=== PATIENT | female | born 1985 | race African-American/Black ===

== ENCOUNTER 2021-03-22 14:49 | Emergency (ER) | payer SELFPAY ==
--- NOTE | 2021-03-22 17:28 | CR ---
Indication: Shortness of breath Comparison: None available. Technique: Single AP view chest Findings: There is no focal consolidation, effusion, or pneumothorax. The cardiomediastinal silhouette is within normal limits. The bony thorax is grossly intact. Impression: No acute cardiopulmonary abnormality. Dictated by Eloy Del Real MD @ 03/22/2021 5:25:52 PM (Electronically Signed)
--- NOTE | 2021-03-22 17:40 | EDM.PDOC ---
<Marc Nickerson - Last Filed: 03/22/21 19:53> ED HPI GENERAL MEDICAL PROBLEM - General Chief Complaint: Respiratory Problem Stated Complaint: SOB Time Seen by Provider: 03/22/21 16:04 - History of Present Illness INITIAL COMMENTS - FREE TEXT/NARRATIVE: CHIEF COMPLAINT(S): Shortness of breath HISTORY OF PRESENT ILLNESS: This is a 35-year-old woman with a past medical history of chronic pancreatitis, type 1 diabetes mellitus, insulin-dependent, hypertension, iron deficiency anemia, dysfunctional uterine bleeding who comes to the emergency department with a chief complaint of shortness of breath. The patient states that for the last 3 weeks she has been experiencing shortness of breath. She states that she just moved here from [place]. She states that she did have a long drive approximately 26 hours. She denies any lower extremity edema. She states that she is mainly noticed increased shortness of breath when she goes upstairs or is walking. She describes some chest tightness but denies any chest pain. She denies any syncope but states that she does feel lightheaded at times. She denies any fever, chills but states that she does have a slight smoker's cough in the morning. She denies any history of DVT or PE. She denies any history of CAD or CHF and denies any family history of sudden onset at young age. REVIEW OF SYSTEMS: Constitutional: Denies fever, chills. Eyes: Denies eye pain Ears, Nose, Mouth, & Throat: Denies earache Cardiovascular: Positive for occasional chest tightness Respiratory: Positive for exertional dyspnea and occasional cough Gastrointestinal: Denies Nausea, vomiting, diarrhea, hematochezia. Genitourinary: Denies hematuria Skin:Denies a rash MSK: Denies joint pain Neurological: Denies blurred vision Psychiatric: Denies depression PAST MEDICAL HISTORY: As per history of present illness and as reviewed below otherwise noncontributory. SURGICAL HISTORY: As per history of present illness and as reviewed below otherwise noncontributory. SOCIAL HISTORY: As per history of present illness and as reviewed below otherwise noncontributory. FAMILY HISTORY: As per history of present illness and as reviewed below otherwise noncontributory. EXAMINATION OF ORGAN SYSTEMS/BODY AREAS: Constitutional: Blood pressure is 107/64, heart rate 86, respiratory rate 22 with an oxygen saturation of 99% on room air. Temperature 36.8 General: Young woman who does not appear to be in acute distress Psychiatric: Appropriate mood and affect. Eyes: No scleral icterus or conjunctival erythema ENMT: Moist mucous membranes. No pharyngeal erythema Cardiovascular: Regular, rate, and rhythm. No gallops, murmurs, or rubs. Bilateral upper extremity pulses symmetric and intact. No peripheral edema. No JVD. Respiratory: Lungs clear to auscultation bilaterally. No wheezes, rales, or rhonchi. Gastrointestinal: Soft, non-tender, non-distended. Normoactive bowel sounds Genitourinary: No suprapubic tenderness Musculoskeletal: Normal range of motion. Skin: No lesions or abrasions. Neurological: Alert, GCS 15 MEDICAL DECISION MAKING AND COURSE IN THE ED WITH INTERPRETATION/REVIEW OF DIAGNOSTIC STUDIES: This is a 35-year-old woman with a past medical history of type 1 diabetes mellitus, hypertension, chronic pancreatitis, and iron deficiency anemia who comes to the emergency department with exertional dyspnea after traveling for the last 3 weeks who is afebrile with normal oxygenation. At this time given her long trip we have to consider a pulmonary embolism. Given her vital signs and given her age she is low risk for this we will obtain a D-dimer to evaluate need for CT angiogram. We will obtain labs including CBC, BMP and troponin. Covid screen will also be obtained. Differential includes ACS, pneumonia, Covid. EKG was obtained which not reveal any acute signs of ischemia. Laboratory: CBC reveals a microcytic anemia with a hemoglobin of 8.4 and hematocrit of 27.9 with thrombocytosis with a platelet count of 410. INR is normal. D-dimer is negative. BMP reveals hypochloremia at 89 and elevated creatinine of 1.6 and hyperglycemia at 783. Magnesium is normal and troponin is negative. Covid is negative. The radiological images were viewed by myself along with reading the report from the radiologist. Chest x-ray does not reveal any acute cardiopulmonary process. After labs I did discuss with the patient that I do believe her exertional dyspnea is likely secondary to the degree of anemia she is experiencing. She states that she normally has 25 days of bleeding a month. She denies any melena, hematochezia or history of GI bleed. She denies any abdominal pain at all whatsoever. She states that her physician in [place] was giving her medroxyprogesterone but she has not had that. In addition she states that she takes Humalog 70/30 20 units at night of insulin. She denies any nausea, vomiting, any other symptoms. She is not on any short acting insulin. At this time I did discuss with her that she should follow-up with gynecology to control her dysfunctional uterine bleeding as I do believe this iron deficiency anemia is likely secondary to her menstrual bleeding and what is likely causing her exertional dyspnea. However given the hyperglycemia I discussed with her I would like to provide her with 1 L of lactated Ringer's bolus and to provide her 10 units of insulin IV. I discussed with her that she would need a close follow-up appointment so that her diabetes could be managed more appropriately and so that they can start her on some short acting insulin. She was amenable to this plan. [facility] pending reevaluation of hyperglycemia DISPOSITION: Patient was signed out to [facility] night physician CONDITION: Fair PROCEDURES: None FINAL IMPRESSION(S)/DIAGNOSES: 1. Acute dyspnea likely secondary to iron deficiency anemia and dysfunctional uterine bleeding 2. Acute hyperglycemia Marc Nickerson M.D. - Related Data Allergies Allergy/AdvReac Type Severity Reaction Status Date / Time No Known Allergies Allergy Verified 03/22/21 15:00 Home Meds: Home Meds Amylase/Lipase/Protease [Belkis WALKER 24,000 Unit] 03/22/21 [History] Labetalol HCl [Labetalol] 03/22/21 [History] amLODIPine [Norvasc] 03/22/21 [History] lisinopriL [Lisinopril] 10 mg PO 03/22/21 [History] Past Medical History HEENT History: Reports: None Cardiovascular History: Reports: Hypertension Respiratory History: Reports: None Gastrointestinal History: Reports: GERD Genitourinary History: Reports: None NAIL TECH History: Reports: None Musculoskeletal History: Reports: None Neurological History: Reports: None Psychiatric History: Reports: None Endocrine/Metabolic History: Reports: Diabetes, Type I Hematologic History: Reports: None Oncologic (Cancer) History: Reports: None Dermatologic History: Reports: None Social & Family History - Family History Family Medical History: No Pertinent Family History - Tobacco Use Tobacco Use Status *Q: Current Every Day Tobacco User Years of Tobacco use: 15 Packs/Tins Daily: 1 - Caffeine Use Caffeine Use: Reports: None - Recreational Drug Use Recreational Drug Use: No Departure - Departure Disposition: Eloped 07 Clinical Impression: Hyperglycemia due to type 1 diabetes mellitus, Anemia, RACHEL (acute kidney injury), Pseudohyponatremia - Discharge Information Instructions: Anemia, Hyperglycemia, [id number] Referrals: PCP,None [Primary Care Provider] - Forms: ED Department Discharge Additional Instructions: The need for follow-up, as well as the timing and circumstances, are variable depending upon the specifics of your emergency department visit. If you don't have a primary care physician on staff, we will provide you with a referral. We always advise you to contact your personal physician following an emergency department visit to inform them of the circumstance of the visit and for follow-up with them and/or the need for any referrals to a consulting specialist. The emergency department will also refer you to a specialist when appropriate. This referral assures that you have the opportunity for follow-up care with a specialist. All of these measure are taken in an effort to provide you with optimal care, which includes your follow-up. Under all circumstances we always encourage you to contact your private physician who remains a resource for coordinating your care. When calling for follow-up care, please make the office aware that this follow-up is from your recent emergency room visit. If for any reason you are refused follow-up, please contact the [facility] Emergency Department at and asked to speak to the emergency department charge nurse. If you do not have a primary care doctor, please follow up with the clinics below within 3-5 days. [facility] - [facility] [address] [place] [id number] [facility] [address] [place] [id number] Sepsis Event Note (ED) - Evaluation Sepsis Screening Result: No Definite Risk <Bryson Basurto - Last Filed: 03/22/21 20:30> ED ROS GENERAL - Review of Systems Review Of Systems: See Below (see dictation) ED EXAM, GENERAL - Physical Exam Exam: See Below (see dictation) Course - Vital Signs Last Recorded V/S: Last Vital Signs Temp 97.7 F 03/22/21 19:24 Pulse 91 03/22/21 19:24 Resp 18 03/22/21 19:24 BP 118/75 03/22/21 19:24 Pulse Ox 98 03/22/21 19:24 - Orders/Labs/Meds Orders: Active Orders 24 hr Category Date Time Status Dextrose 50% in Water Med 03/22/21 17:57 Active 50 ml IVPUSH ASDIRECTED PRN Glucagon,Human Recombinant [GlucaGen] Med 03/22/21 17:57 Active 1 mg IM ASDIRECTED PRN Lactated Ringers [Ringers, Lactated] 1,000 ml Med 03/22/21 18:00 Active IV ASDIRECTED Medication Orders Dextrose/Water (50% Dextrose In Water 50 Ml Syringe) 50 ml IVPUSH ASDIRECTED PRN PRN Reason: Hypoglycemia Glucagon (Glucagon,Human Recombinant 1 Mg Vial) 1 mg IM ASDIRECTED PRN PRN Reason: Hypoglycemia Lactated Ringer's (Ringers, Lactated) 1,000 mls @ 999 mls/hr IV ASDIRECTED ARIEL Last Admin: 03/22/21 18:10 Dose: 999 mls/hr Documented by: MARIMAR Labs: Laboratory Tests 03/22/21 03/22/21 03/22/21 Range/Units 16:04 16:44 16:44 WBC 6.90 (4.0-11.0) K/uL RBC 3.94 L (4.30-5.90) M/uL Hgb 8.4 L (12.0-16.0) g/dL Hct 27.9 L (36.0-46.0) % MCV 70.8 L (80.0-98.0) fL MCH 21.3 L (27.0-32.0) pg MCHC 30.1 L (31.0-37.0) g/dL RDW Std Deviation 47.7 (28.0-62.0) fl RDW Coeff of Vannesa 18 H (11.0-15.0) % Plt Count 410 H (150-400) K/uL MPV 11.90 (7.40-12.00) fL Neut % (Auto) 53.5 (48.0-80.0) % Lymph % (Auto) 34.1 (16.0-40.0) % Rosebud % (Auto) 6.1 (0.0-15.0) % Eos % (Auto) 4.6 (0.0-7.0) % Baso % (Auto) 1.7 H (0.0-1.5) % Neut # (Auto) 3.7 (1.4-5.7) K/uL Lymph # (Auto) 2.4 (0.6-2.4) K/uL Rosebud # (Auto) 0.4 (0.0-0.8) K/uL Eos # (Auto) 0.3 (0.0-0.7) K/uL Baso # (Auto) 0.1 (0.0-0.1) K/uL Nucleated RBC % 0.0 /100WBC Nucleated RBCs # 0 K/uL INR D-Dimer, Quantitative (0.0-0.50) mg/L FEU Sodium 123 L (136-145) mmol/L Potassium 4.8 (3.5-5.1) mmol/L Chloride 89 L (98-107) mmol/L Carbon Dioxide 22.6 (21.0-32.0) mmol/L BUN 16 (7.0-18.0) mg/dL Creatinine 1.6 H (0.6-1.0) mg/dL Est Cr Clr Drug Dosing 48.63 mL/min Estimated GFR (MDRD) 45.0 ml/min Glucose 783 H* (74-106) mg/dL POC Glucose (70-99) mg/dL Calcium 9.4 (8.5-10.1) mg/dL Magnesium 2.4 (1.8-2.4) mg/dL Troponin I < 0.050 (0.000-0.056) ng/mL SARS-CoV-2 RNA (MARIMAR) NEGATIVE (NEGATIVE) 03/22/21 03/22/21 03/22/21 Range/Units 16:44 16:44 18:56 WBC (4.0-11.0) K/uL RBC (4.30-5.90) M/uL Hgb (12.0-16.0) g/dL Hct (36.0-46.0) % MCV (80.0-98.0) fL MCH (27.0-32.0) pg MCHC (31.0-37.0) g/dL RDW Std Deviation (28.0-62.0) fl RDW Coeff of Vannesa (11.0-15.0) % Plt Count (150-400) K/uL MPV (7.40-12.00) fL Neut % (Auto) (48.0-80.0) % Lymph % (Auto) (16.0-40.0) % Rosebud % (Auto) (0.0-15.0) % Eos % (Auto) (0.0-7.0) % Baso % (Auto) (0.0-1.5) % Neut # (Auto) (1.4-5.7) K/uL Lymph # (Auto) (0.6-2.4) K/uL Rosebud # (Auto) (0.0-0.8) K/uL Eos # (Auto) (0.0-0.7) K/uL Baso # (Auto) (0.0-0.1) K/uL Nucleated RBC % /100WBC Nucleated RBCs # K/uL INR 0.96 D-Dimer, Quantitative < 0.19 (0.0-0.50) mg/L FEU Sodium (136-145) mmol/L Potassium (3.5-5.1) mmol/L Chloride (98-107) mmol/L Carbon Dioxide (21.0-32.0) mmol/L BUN (7.0-18.0) mg/dL Creatinine (0.6-1.0) mg/dL Est Cr Clr Drug Dosing mL/min Estimated GFR (MDRD) ml/min Glucose (74-106) mg/dL POC Glucose 420 H* (70-99) mg/dL Calcium (8.5-10.1) mg/dL Magnesium (1.8-2.4) mg/dL Troponin I (0.000-0.056) ng/mL SARS-CoV-2 RNA (MARIMAR) (NEGATIVE) Meds: Medications Generic Name Dose Route Start Last Admin Trade Name Freq PRN Reason Stop Dose Admin Dextrose/Water 50 ml 03/22/21 17:57 50% Dextrose In Water 50 Ml Syringe IVPUSH ASDIRECTED PRN Hypoglycemia Glucagon 1 mg 03/22/21 17:57 Glucagon,Human Recombinant 1 Mg Vial IM ASDIRECTED PRN Hypoglycemia Lactated Ringer's 1,000 mls @ 999 mls/hr 03/22/21 18:00 03/22/21 18:10 Ringers, Lactated IV 999 mls/hr ASDIRECTED ARIEL Administration Discontinued Medications Generic Name Dose Route Start Last Admin Trade Name Ganesh PRN Reason Stop Dose Admin Insulin Human Regular 10 unit 03/22/21 17:57 03/22/21 18:16 Insulin Regular, Human 100 Units/Ml 10 Ml Vial IVPUSH 03/22/21 17:58 10 unit ONETIME ONE Administration Protocol - Re-Assessments/Exams Free Text/Narrative Re-Assessment/Exam: 03/22/21 1900 This patient was signed out to me from Dr. Nickerson at this time. I promptly performed a detailed physical examination, my examination was performed after ED treatments were initiated by the signout provider. Patient has been under the care of the previous provider up until this point. Patient feels fine, awaiting for repeat Accu-Chek after insulin and lactated Ringer. She moved from [place], [place] 4 days ago and has not established care in [place]. She currently denies shortness of breath. 03/22/212019 Patient eloped from the ED prior to repeat accucheck. Departure - Departure Time of Disposition: 20:28 Condition: Good - Discharge Information *PRESCRIPTION DRUG MONITORING PROGRAM REVIEWED*: Not Applicable *COPY OF PRESCRIPTION DRUG MONITORING REPORT IN PATIENT ANJUM: Not Applicable Sepsis Event Note (ED) - Focused Exam Vital Signs: Vital Signs Temp Pulse Resp BP Pulse Ox 03/22/21 19:24 97.7 F 91 18 118/75 98 03/22/21 18:33 92 17 130/68 98 03/22/21 14:54 98.3 F 86 22 H 107/64 99
--- NOTE | 2021-03-22 17:41 | PCM.EKG ---
#1 Interpretation EKG Date: 03/22/21 Time: 16:27 Rhythm: NSR Rate (Beats/Min): 80 [place]: Normal P-Wave: Present QRS: Normal ST-T: Normal QT: Normal Comparison: NA - No Prior EKG EKG Interpretation Comments: Sinus Rhythm
[2021-03-22 17:48] LABS: BLOOD UREA NITROGEN,BUN 16 mg/dL (7.0-18.0); CARBON DIOXIDE,CO2 22.6 mmol/L (21.0-32.0); CHLORIDE,CL 89 mmol/L (98-107); POTASSIUM,K 4.8 mmol/L (3.5-5.1); SODIUM,NA 123 mmol/L (136-145)
[2021-03-22 17:52] LABS: GLUCOSE RANDOM 783 mg/dL (74-106)
[2021-03-22] MEDS ORDERED: 50% Dextrose in Water 50 ML Syringe IVPUSH PRN (17:57)
[2021-03-22] MEDS ORDERED: Glucagon,Human Recombinant 1 MG Vial IM PRN (17:57)
[2021-03-22] MEDS ORDERED: Insulin Regular, Human 100 Units/ML 10 ML Vial IVPUSH ONE (17:57)
[2021-03-22] MEDS ORDERED: Lactated Ringers 1,000 ML IV SCH (18:00)
== END 2021-03-22 20:33 | disposition left against medical advice (07) ==
LOC: MW.ED 14:49
DX: R06.02 Shortness of breath (principal); E10.65 Type 1 diabetes mellitus with hyperglycemia; N17.9 Acute kidney failure, unspecified; D64.9 Anemia, unspecified; I10 Essential (primary) hypertension; E87.1 Hypo-osmolality and hyponatremia; Z79.899 Other long term (current) drug therapy; Z20.822 Contact with and (suspected) exposure to COVID-19
CPT/HCPCS: 36415; 71045; 80048; 82947; 83735; 84484; 85025; 85379; 85610; 87635; 93005; 99285; J7120; J1815-GY; U0002

== ENCOUNTER 2021-04-30 15:53 | Emergency (ER) | payer MEDICAID ==
[2021-04-30] MEDS ORDERED: Sodium Chloride 0.9% 2.5 ML Syringe FLUSH PRN (16:17)
[2021-04-30] MEDS ORDERED: Sodium Chloride 0.9% 10 ML SDV IV PRN (16:17)
[2021-04-30] MEDS ORDERED: Sodium Chloride 0.9% 10 ML Syringe FLUSH PRN (16:17)
[2021-04-30] MEDS ORDERED: Ketorolac 30 MG/ML SDV IVPUSH ONE (16:19)
[2021-04-30] MEDS ORDERED: Ondansetron 4 MG/2 ML SDV IVPUSH ONE (16:19)
[2021-04-30] MEDS ORDERED: Sodium Chloride 0.9% 1,000 ML IV SCH (16:30)
--- NOTE | 2021-04-30 16:58 | PCM.EKG ---
#1 Interpretation EKG Interpretation Comments: EKG done 04/30/2021 at 4:51 PM shows rate 92 axis -13 NM 153 sinus rhythm anterior infarct compared to 03/22/2021 no change impression no acute injury
--- NOTE | 2021-04-30 17:01 | EDM.PDOC ---
ED HPI GENERAL MEDICAL PROBLEM - General Chief Complaint: Flank Pain Time Seen by Provider: 04/30/21 16:00 Source of Information: Reports: Patient History Limitations: Reports: No Limitations - History of Present Illness INITIAL COMMENTS - FREE TEXT/NARRATIVE: HISTORY AND PHYSICAL: History of present illness: The patient is a 35-year-old woman with a past medical history of chronic pancreatitis, type 1 diabetes mellitus, insulin-dependent, hypertension, iron deficiency anemia, dysfunctional uterine bleeding who presents to the emergency department with complaints of right flank pain for 5 to 6 days. The patient states that she has been nausea and vomiting since the pain started. She has been having ongoing constipation as she is taking iron on a daily basis. Patient stated that she had a headache due to going without her 3 hypertension medications for 7 to 8 days but after being back on them for 3 days her headache is starting to decrease. The patient states she started her menses today and has a very irregular cycle often having 25 days of irregular bleeding. Patient denies any fever, chills, change in vision, syncope or near syncope. Denies any chest pain, back pain, shortness of breath or cough. Denies any diarrhea or dysuria. Has not noted any blood in urine or stool. Patient has been eating and drinking appropriately. Review of systems: As per history of present illness and below otherwise all systems reviewed and negative. Past medical history: As per history of present illness and as reviewed below otherwise noncontributory. Surgical history: As per history of present illness and as reviewed below otherwise noncontributory. Social history: See social history for further information Family history: As per history of present illness and as reviewed below otherwise noncontributory. Physical exam: General: Well developed and well nourished. Alert and orientated x 3. Nontoxic in appearance and in no acute distress. Vital signs are stable and have been r eviewed by me. Nursing notes were reviewed. HEENT: Atraumatic, normocephalic, pupils equal and reactive bilaterally, negative for conjunctival pallor or scleral icterus, mucous membranes moist, TMs normal bilaterally, throat clear, neck supple, nontender, trachea midline. No drooling or trismus noted. No meningeal signs. No hot potato voice noted. Lungs: Clear to auscultation bilaterally. No wheezes, rales, or rhonchi. Chest nontender. Normal work of breathing, no accessory muscles used. Heart: S1S2, regular rate and rhythm without overt murmur, gallops, or rubs. No JVD. No peripheral edema Abdomen: Soft, nondistended, nontender. Normoactive bowel sounds. Negative for masses. Positive for bilateral costovertebral tenderness. Skin: Intact, warm, dry. No lesions or rashes noted. Hematologic: No petechiae or purpra. Mucosa appropriate color and normal nail bed color and refill. Extremities: Atraumatic, moves all extremities per self without difficulty or deficits, negative for cords or calf pain. Neurovascular unremarkable. Neuro: Awake, alert, oriented. Cranial nerves II through XII unremarkable. Cerebellum unremarkable. Motor and sensory unremarkable throughout. Exam nonfocal. Psychiatric: Mood and affect are appropriate. Normal thought process. Answering questions appropriately. Notes: *This patient was seen and evaluated during the 2019 SARS-CoV-2 novel coronavirus pandemic period. Community viral transmission is ongoing at time of this encounter and the emergency department is operating under pandemic response procedures. As stated above the patient is a 35-year-old female with a past medical history of chronic pancreatitis, type 1 diabetes mellitus, insulin-dependent, hypertension, iron deficiency anemia, dysfunctional uterine bleeding who presents to the emergency department with complaints of right flank pain for 5 to 6 days. The patient states that her blood sugar at home was 399. She states that she takes Humulin 70/30 and her doctor had prescribed her 30 units in the morning and 30 units in the p.m. however she only takes about 10 to 12 units as she feels like she goes too low. Her blood glucose normally runs between 230 and 250. She states her last A1c was here when she was in the emergency department and is 9.5. The patient does not see a primary care on a routine basis. Recently the patient ran out of her 3 blood pressure medications for 7 to 8 days. She has been on them for the last 3 days. Patient states that she has never had this kind of pain before and does not associate with her diabetes. We will work-up her diabetes and her abdominal pain. I will order blood work, CT abdomen pelvis without, urinalysis, and an hCG. I will treat the patient with IV fluids, Zofran, and Toradol. The patient is agreeable with this plan. The patient sodium is 129, potassium 4.1, chloride 90, creatinine 1.6, glucose of 489, phosphorus 2.5, alkaline phosphatase 155. I have prescribed 3 units of regular insulin IV to be given. The patient's urine hCG is negative. Patient's WBC is 13.5. The patient's urinalysis is positive for an infection. I have prescribed Bactrim DS po BID for 14 days. We will stat the antibiotic in the ED. The patient is to have a total of two liters of fluids and another Regular insulin 5 units. I have explained to the patient of the need for the second liter of fluids and insulin. She is agreeable with the plan. I talked to the patient about her need for a primary care provider with her type 1 diabetes. I explained to the patient that her A1c in March was 11 which makes her blood sugar running around 310. The patient states that she is uncomfortable increasing her Humulin 70/30 but will follow up with the primary care. The patient's follow-up glucose is 333. The patient is completing her second liter of fluids and states she is feeling pretty good. I will be discharging the patient home and she is under understands the need to follow-up with a primary care. I have talked with the patient about today's findings, in addition to providing specific details for plan of care. Reassessment at the time of disposition demonstrates that the patient is in no acute distress. The patient is stable for discharge, counseling was provided and we discussed in great detail signs and symptoms that would prompt them to return to the Emergency Department. Medication, follow up and supportive care measures were reviewed and discussed. Voices understanding and is agreeable to plan of care. Denies any further questions or concerns at this time. Diagnostics: CBC, C MP, lipase, magnesium, lactic acid, UA, hCG, CT abdomen pelvis without Therapeutics: Fluids, Zofran, Toradol Prescription:Bactrim DS one by mouth BID for 14 days Impression: pyelonephritis, elevated glucose Plan: 1. You were evaluated today on an emergent basis. Your complaints of flank pain was evaluated with blood work, urinalysis, and a abdomen CT. You were found to have pyelonephritis or kidney infection. You were treated with Bactrim DS. I have called Bactrim DS 1 by mouth twice daily for 14 days to your pharmacy. It is imperative that you take all of your medications. Your glucose was elevated and you were treated with insulin. You also received 2 L of fluid. Your A1c in March was 11 which puts your average glucose around 310. It is imperative that you follow-up with a primary care provider and get your diabetes under control as we discussed. I have put your name on a callback list for your primary care providers. You should receive a phone call however if you do not you need to make that appointment. 2. You can alternate Tylenol and ibuprofen as needed for pain and fever management. 3. We encourage you to follow up with your primary care provider and/or recommended specialist in the next few days for re-evaluation and further care/management. 4. If your symptoms should worsen, new symptoms develop or any of the signs and symptoms we discussed should arise please return to the emergency room or call 911 (if needed). Definitive disposition and diagnosis as appropriate pending reevaluation and review of above. Right Flank Pain Score (Numeric/FACES): 10 - Related Data Allergies Allergy/AdvReac Type Severity Reaction Status Date / Time No Known Allergies Allergy Verified 04/30/21 16:03 Home Meds: Home Meds Amylase/Lipase/Protease [Creon DR 24,000 Unit] 03/22/21 [History] Labetalol HCl [Labetalol] 03/22/21 [History] amLODIPine [Norvasc] 03/22/21 [History] lisinopriL [Lisinopril] 10 mg PO 03/22/21 [History] Sulfamethoxazole/Trimethoprim [Bactrim Ds Tablet] 1 each PO BID 14 Days #27 tablet 04/30/21 [Rx] Past Medical History HEENT History: Reports: None Cardiovascular History: Reports: Hypertension Respiratory History: Reports: None Gastrointestinal History: Reports: GERD Genitourinary History: Reports: None INFECTIOUS DISEASES PHYSICIAN History: Reports: None Musculoskeletal History: Reports: None Neurological History: Reports: None Psychiatric History: Reports: None Endocrine/Metabolic History: Reports: Diabetes, Type I Hematologic History: Reports: None Oncologic (Cancer) History: Reports: None Dermatologic History: Reports: None - Infectious Disease History Infectious Disease History: Reports: C-Difficile, Shingles Social & Family History - Family History Family Medical History: No Pertinent Family History - Tobacco Use Tobacco Use Status *Q: Current Every Day Tobacco User Years of Tobacco use: 10 Packs/Tins Daily: 0.5 - Caffeine Use Caffeine Use: Reports: None - Recreational Drug Use Recreational Drug Use: No ED ROS GENERAL - Review of Systems Review Of Systems: Comprehensive ROS is negative, except as noted in HPI. ED EXAM, GI/ABD - Physical Exam Exam: See Below (See dictation) Course - Vital Signs Last Recorded V/S: Last Vital Signs Temp 97.8 F 04/30/21 16:04 Pulse 84 04/30/21 21:07 Resp 17 04/30/21 21:07 BP 122/87 04/30/21 21:07 Pulse Ox 98 04/30/21 21:07 - Orders/Labs/Meds Labs: Laboratory Tests 04/30/21 04/30/21 04/30/21 Range/Units 16:48 16:48 16:48 WBC 13.50 H (4.0-11.0) K/uL RBC 5.02 (4.30-5.90) M/uL Hgb 13.6 (12.0-16.0) g/dL Hct 40.5 (36.0-46.0) % MCV 80.7 (80.0-98.0) fL MCH 27.1 (27.0-32.0) pg MCHC 33.6 (31.0-37.0) g/dL RDW Std Deviation 69.6 H (28.0-62.0) fl RDW Coeff of Vannesa 25 H (11.0-15.0) % Plt Count 139 L (150-400) K/uL MPV (7.40-12.00) fL Neut % (Auto) 69.6 (48.0-80.0) % Lymph % (Auto) 13.6 L (16.0-40.0) % Ida % (Auto) 15.2 H (0.0-15.0) % Eos % (Auto) 1.3 (0.0-7.0) % Baso % (Auto) 0.3 (0.0-1.5) % Neut # (Auto) 9.4 H (1.4-5.7) K/uL Lymph # (Auto) 1.8 (0.6-2.4) K/uL Ida # (Auto) 2.1 H (0.0-0.8) K/uL Eos # (Auto) 0.2 (0.0-0.7) K/uL Baso # (Auto) 0.0 (0.0-0.1) K/uL Nucleated RBC % 0.0 /100WBC Nucleated RBCs # 0 K/uL Sodium 129 L (136-145) mmol/L Potassium 4.1 (3.5-5.1) mmol/L Chloride 90 L (98-107) mmol/L Carbon Dioxide 30.3 (21.0-32.0) mmol/L BUN 12 (7.0-18.0) mg/dL Creatinine 1.6 H (0.6-1.0) mg/dL Est Cr Clr Drug Dosing 48.63 mL/min Estimated GFR (MDRD) 37.1 ml/min Glucose 489 H (74-106) mg/dL POC Glucose (70-99) mg/dL Lactic Acid (0.4-2.0) mmol/L Calcium 9.2 (8.5-10.1) mg/dL Phosphorus 2.5 L (2.6-4.7) mg/dL Magnesium 1.9 (1.8-2.4) mg/dL Total Bilirubin 0.4 (0.2-1.0) mg/dL AST 35 (15-37) IU/L ALT 24 (14-63) IU/L Alkaline Phosphatase 155 H (46-116) U/L Total Protein 8.2 (6.4-8.2) g/dL Albumin 2.7 L (3.4-5.0) g/dL Globulin 5.5 H (2.6-4.0) g/dL Albumin/Globulin Ratio 0.5 L (0.9-1.6) Urine Color YELLOW Urine Appearance CLOUDY Urine pH 6.5 (5.0-8.0) Ur Specific [place] 1.015 (1.001-1.035) Urine Protein 100 H (NEGATIVE) mg/dL Urine Glucose (UA) >=1000 (NEGATIVE) mg/dL Urine Ketones 40 H (NEGATIVE) mg/dL Urine Occult Blood LARGE H (NEGATIVE) Urine Nitrite POSITIVE H (NEGATIVE) Urine Bilirubin NEGATIVE (NEGATIVE) Urine Urobilinogen 1.0 (<2.0) EU/dL Ur Leukocyte Esterase NEGATIVE (NEGATIVE) Urine RBC 75-100 H (0-2/HPF) Urine WBC 6-8 (0-5/HPF) Ur Epithelial Cells RARE (NONE-FEW) Urine Bacteria 2+ H (NEGATIVE) Urine Mucus LIGHT (NONE-MOD) Urine HCG, Qual (NEGATIVE) Ketones (NEG) 04/30/21 04/30/21 04/30/21 Range/Units 16:48 16:48 16:48 WBC (4.0-11.0) K/uL RBC (4.30-5.90) M/uL Hgb (12.0-16.0) g/dL Hct (36.0-46.0) % MCV (80.0-98.0) fL MCH (27.0-32.0) pg MCHC (31.0-37.0) g/dL RDW Std Deviation (28.0-62.0) fl RDW Coeff of Vannesa (11.0-15.0) % Plt Count (150-400) K/uL MPV (7.40-12.00) fL Neut % (Auto) (48.0-80.0) % Lymph % (Auto) (16.0-40.0) % Ida % (Auto) (0.0-15.0) % Eos % (Auto) (0.0-7.0) % Baso % (Auto) (0.0-1.5) % Neut # (Auto) (1.4-5.7) K/uL Lymph # (Auto) (0.6-2.4) K/uL Ida # (Auto) (0.0-0.8) K/uL Eos # (Auto) (0.0-0.7) K/uL Baso # (Auto) (0.0-0.1) K/uL Nucleated RBC % /100WBC Nucleated RBCs # K/uL Sodium (136-145) mmol/L Potassium (3.5-5.1) mmol/L Chloride (98-107) mmol/L Carbon Dioxide (21.0-32.0) mmol/L BUN (7.0-18.0) mg/dL Creatinine (0.6-1.0) mg/dL Est Cr Clr Drug Dosing mL/min Estimated GFR (MDRD) ml/min Glucose (74-106) mg/dL POC Glucose (70-99) mg/dL Lactic Acid 1.5 (0.4-2.0) mmol/L Calcium (8.5-10.1) mg/dL Phosphorus (2.6-4.7) mg/dL Magnesium (1.8-2.4) mg/dL Total Bilirubin (0.2-1.0) mg/dL AST (15-37) IU/L ALT (14-63) IU/L Alkaline Phosphatase (46-116) U/L Total Protein (6.4-8.2) g/dL Albumin (3.4-5.0) g/dL Globulin (2.6-4.0) g/dL Albumin/Globulin Ratio (0.9-1.6) Urine Color Urine Appearance Urine pH (5.0-8.0) Ur Specific [place] (1.001-1.035) Urine Protein (NEGATIVE) mg/dL Urine Glucose (UA) (NEGATIVE) mg/dL Urine Ketones (NEGATIVE) mg/dL Urine Occult Blood (NEGATIVE) Urine Nitrite (NEGATIVE) Urine Bilirubin (NEGATIVE) Urine Urobilinogen (<2.0) EU/dL Ur Leukocyte Esterase (NEGATIVE) Urine RBC (0-2/HPF) Urine WBC (0-5/HPF) Ur Epithelial Cells (NONE-FEW) Urine Bacteria (NEGATIVE) Urine Mucus (NONE-MOD) Urine HCG, Qual NEGATIVE (NEGATIVE) Ketones NEGATIVE (NEG) 04/30/21 04/30/21 Range/Units 18:58 20:22 WBC (4.0-11.0) K/uL RBC (4.30-5.90) M/uL Hgb (12.0-16.0) g/dL Hct (36.0-46.0) % MCV (80.0-98.0) fL MCH (27.0-32.0) pg MCHC (31.0-37.0) g/dL RDW Std Deviation (28.0-62.0) fl RDW Coeff of Vannesa (11.0-15.0) % Plt Count (150-400) K/uL MPV (7.40-12.00) fL Neut % (Auto) (48.0-80.0) % Lymph % (Auto) (16.0-40.0) % Ida % (Auto) (0.0-15.0) % Eos % (Auto) (0.0-7.0) % Baso % (Auto) (0.0-1.5) % Neut # (Auto) (1.4-5.7) K/uL Lymph # (Auto) (0.6-2.4) K/uL Ida # (Auto) (0.0-0.8) K/uL Eos # (Auto) (0.0-0.7) K/uL Baso # (Auto) (0.0-0.1) K/uL Nucleated RBC % /100WBC Nucleated RBCs # K/uL Sodium (136-145) mmol/L Potassium (3.5-5.1) mmol/L Chloride (98-107) mmol/L Carbon Dioxide (21.0-32.0) mmol/L BUN (7.0-18.0) mg/dL Creatinine (0.6-1.0) mg/dL Est Cr Clr Drug Dosing mL/min Estimated GFR (MDRD) ml/min Glucose (74-106) mg/dL POC Glucose 442 H* 333 H (70-99) mg/dL Lactic Acid (0.4-2.0) mmol/L Calcium (8.5-10.1) mg/dL Phosphorus (2.6-4.7) mg/dL Magnesium (1.8-2.4) mg/dL Total Bilirubin (0.2-1.0) mg/dL AST (15-37) IU/L ALT (14-63) IU/L Alkaline Phosphatase (46-116) U/L Total Protein (6.4-8.2) g/dL Albumin (3.4-5.0) g/dL Globulin (2.6-4.0) g/dL Albumin/Globulin Ratio (0.9-1.6) Urine Color Urine Appearance Urine pH (5.0-8.0) Ur Specific [place] (1.001-1.035) Urine Protein (NEGATIVE) mg/dL Urine Glucose (UA) (NEGATIVE) mg/dL Urine Ketones (NEGATIVE) mg/dL Urine Occult Blood (NEGATIVE) Urine Nitrite (NEGATIVE) Urine Bilirubin (NEGATIVE) Urine Urobilinogen (<2.0) EU/dL Ur Leukocyte Esterase (NEGATIVE) Urine RBC (0-2/HPF) Urine WBC (0-5/HPF) Ur Epithelial Cells (NONE-FEW) Urine Bacteria (NEGATIVE) Urine Mucus (NONE-MOD) Urine HCG, Qual (NEGATIVE) Ketones (NEG) Meds: Medications Discontinued Medications Generic Name Dose Route Start Last Admin Trade Name Freq PRN Reason Stop Dose Admin Dextrose/Water 50 ml 04/30/21 17:46 50% Dextrose In Water 50 Ml Syringe IVPUSH ASDIRECTED PRN Hypoglycemia Dextrose/Water 50 ml 04/30/21 19:06 50% Dextrose In Water 50 Ml Syringe IVPUSH ASDIRECTED PRN Hypoglycemia Glucagon 1 mg 04/30/21 17:46 Glucagon,Human Recombinant 1 Mg Vial IM ASDIRECTED PRN Hypoglycemia Glucagon 1 mg 04/30/21 19:06 Glucagon,Human Recombinant 1 Mg Vial IM ASDIRECTED PRN Hypoglycemia Sodium Chloride 1,000 mls @ 999 mls/hr 04/30/21 16:30 04/30/21 16:58 Normal Saline IV 999 mls/hr ASDIRECTED ARIEL Administration Sodium Chloride 1,000 mls @ 999 mls/hr 04/30/21 19:09 04/30/21 19:11 Normal Saline IV 04/30/21 20:09 999 mls/hr .BOLUS ONE Administration Insulin Human Regular 5 unit 04/30/21 17:46 04/30/21 18:19 Insulin Regular, Human 100 Units/Ml 10 Ml Vial IVPUSH 04/30/21 17:47 5 units ONETIME ONE Administration Protocol Insulin Human Regular 5 unit 04/30/21 19:06 04/30/21 19:28 Insulin Regular, Human 100 Units/Ml 10 Ml Vial SUBCUT 04/30/21 19:07 5 units ONETIME ONE Administration Protocol Ketorolac Tromethamine 30 mg 04/30/21 16:19 04/30/21 17:00 Ketorolac 30 Mg/Ml Sdv IVPUSH 04/30/21 16:20 30 mg ONETIME ONE Administration Nitrofurantoin Macrocrystals 100 mg 04/30/21 18:57 Nitrofurantoin Monohydrate/Macrocrystalline 100 Mg Cap PO 04/30/21 18:58 ONETIME STA Ondansetron HCl 4 mg 04/30/21 16:19 04/30/21 17:00 Ondansetron 4 Mg/2 Ml Sdv IVPUSH 04/30/21 16:20 4 mg ONETIME ONE Administration Sodium Chloride 10 ml 04/30/21 16:17 04/30/21 17:01 Sodium Chloride 0.9% 10 Ml Syringe FLUSH 10 ml ASDIRECTED PRN Administration Keep Vein Open Sodium Chloride 2.5 ml 04/30/21 16:17 04/30/21 17:01 Sodium Chloride 0.9% 2.5 Ml Syringe FLUSH 2.5 ml ASDIRECTED PRN Administration Keep Vein Open Sodium Chloride 10 ml 04/30/21 16:17 Sodium Chloride 0.9% 10 Ml Sdv IV ASDIRECTED PRN IV Use Trimethoprim/Sulfamethoxazole 1 tab 04/30/21 19:05 04/30/21 19:29 Sulfamethoxazole/Trimethoprim 800-160 Mg Tab PO 04/30/21 19:06 1 tab ONETIME STA Administration Departure - Departure Time of Disposition: 20:25 Disposition: Home, Self-Care 01 Condition: Good Clinical Impression: Pyelonephritis, Elevated glucose - Discharge Information *PRESCRIPTION DRUG MONITORING PROGRAM REVIEWED*: Not Applicable *COPY OF PRESCRIPTION DRUG MONITORING REPORT IN PATIENT ANJUM: Not Applicable Prescriptions: Sulfamethoxazole/Trimethoprim [Bactrim Ds Tablet] 1 each PO BID 14 Days #27 tablet Instructions: Pyelonephritis, Adult, [id number] Referrals: PCP,None [Primary Care Provider] - Forms: ED Department Discharge Additional Instructions: The following information is given to patients seen in the emergency department who are being discharged to home. This information is to outline your options for follow-up care. We provide all patients seen in our emergency department with a follow-up referral. The need for follow-up, as well as the timing and circumstances, are variable depending upon the specifics of your emergency department visit. If you don't have a primary care physician on staff, we will provide you with a referral. We always advise you to contact your personal physician following an emergency department visit to inform them of the circumstance of the visit and for follow-up with them and/or the need for any referrals to a consulting specialist. The emergency department will also refer you to a specialist when appropriate. This referral assures that you have the opportunity for follow-up care with a specialist. All of these measure are taken in an effort to provide you with optimal care, which includes your follow-up. Under all circumstances we always encourage you to contact your private physician who remains a resource for coordinating your care. When calling for follow-up care, please make the office aware that this follow-up is from your recent emergency room visit. If for any reason you are refused follow-up, please contact the [facility] Emergency Department at and asked to speak to the emergency department charge nurse. Delmi Perry [facility] - [facility] [address] [place] [id number] [facility] [address] [place] [id number] Plan: 1. You were evaluated today on an emergent basis. Your complaints of flank pain was evaluated with blood work, urinalysis, and a abdomen CT. You were found to have pyelonephritis or kidney infection. You were treated with Bactrim DS. I have called Bactrim DS 1 by mouth twice daily for 14 days to your pharmacy. It is imperative that you take all of your medications. Your glucose was elevated and you were treated with insulin. You also received 2 L of fluid. Your A1c in March was 11 which puts your average glucose around 310. It is imperative that you follow-up with a primary care provider and get your diabetes under control as we discussed. I have put your name on a callback list for your primary care providers. You should receive a phone call however if you do not you need to make that appointment. 2. You can alternate Tylenol and ibuprofen as needed for pain and fever management. 3. We encourage you to follow up with your primary care provider and/or recommended specialist in the next few days for re-evaluation and further care/management. 4. If your symptoms should worsen, new symptoms develop or any of the signs and symptoms we discussed should arise please return to the emergency room or call 911 (if needed). Sepsis Event Note (ED) - Evaluation Sepsis Screening Result: No Definite Risk
[2021-04-30 17:37] LABS: CARBON DIOXIDE,CO2 30.3 mmol/L (21.0-32.0); POTASSIUM,K 4.1 mmol/L (3.5-5.1)
[2021-04-30] MEDS ORDERED: 50% Dextrose in Water 50 ML Syringe IVPUSH PRN ×2 (17:46→19:06)
[2021-04-30] MEDS ORDERED: Insulin Regular, Human 100 Units/ML 10 ML Vial IVPUSH ONE (17:46)
[2021-04-30] MEDS ORDERED: Glucagon,Human Recombinant 1 MG Vial IM PRN ×2 (17:46→19:06)
--- NOTE | 2021-04-30 18:49 | CT ---
INDICATION: Flank pain COMPARISON: None available TECHNIQUE: CT examination of the abdomen and pelvis was performed without contrast enhancement using 2 and 3us mm thick axial sections from the lung bases through the pubic symphysis. Oral contrast was not administered. Please note that all CT scans at this facility use dose modulation, iterative reconstruction, and/or weight-based dosing when appropriate to reduce radiation dose to as low as reasonably achievable. FINDINGS: There is a moderate amount of fecal material distributed throughout the colon consistent with constipation. In the abdomen, the liver is low in density, representing fatty infiltration. There is a lobulated low-density mass in the area of the koby hepatis involving the inferior portion of segment 4B, the medial segments of the left lobe, measuring 3.4 x 2.5 by 3.1 centimeters. This may be a hemangioma or other low-density mass. Suggest correlation with dedicated CT of the liver with and without contrast, to include delayed images. The spleen, pancreas and adrenals are normal in appearance. The unenhanced kidneys are normal in appearance. The gallbladder is normal in appearance. The abdominal aorta is normal in caliber with no sign of dilatation. There is no sign of retroperitoneal mass or adenopathy. The stomach, loops of small bowel, and colon in the abdomen are normal in appearance. In the pelvis, the retrocecal appendix is normal in appearance with no sign of inflammatory process. The loops of small bowel and colon in the pelvis are normal in appearance. The uterus and adnexal regions are normal in appearance. The urinary bladder is normal in appearance. There is no sign of pelvic or inguinal mass or adenopathy. There is no sign of free air or free fluid in the abdomen or pelvis. The lung bases are clear. The osseous structures are normal in appearance for the patient`s age. IMPRESSION: There is a moderate amount of fecal material distributed throughout the colon consistent with constipation. CT of the abdomen shows fatty infiltration of the liver. Lobular low-density mass in central portion of the inferior aspect of the medial segment of the left lobe, segment 4B measuring up to 3.4 centimeters in diameter, a possible hemangioma. Recommend correlation with dedicated CT of the liver with and without contrast, to include delayed images. Nothing else seen in the abdomen to correlate with the history of flank pain. No sign of hydronephrosis, hydroureter, or renal or ureteral calculi. Normal CT of the pelvis without contrast. Please note that all CT scans at this facility use dose modulation, iterative reconstruction, and/or weight-based dosing when appropriate to reduce radiation dose to as low as reasonably achievable. Dictated by Keven Chaidez MD @ 04/30/2021 6:47:50 PM (Electronically Signed)
[2021-04-30] MEDS ORDERED: Nitrofurantoin Monohydrate/Macrocrystalline 100 MG Cap PO STA (18:57)
[2021-04-30] MEDS ORDERED: Sulfamethoxazole/Trimethoprim 800-160 MG Tab PO STA (19:05)
[2021-04-30] MEDS ORDERED: Insulin Regular, Human 100 Units/ML 10 ML Vial SUBCUT ONE (19:06)
[2021-04-30] MEDS ORDERED: Sodium Chloride 0.9% 1,000 ML IV ONE (19:09)
== END 2021-04-30 21:07 | disposition home or self-care (01) ==
LOC: MW.ED 15:53
DX: N12 Tubulo-interstitial nephritis, not specified as acute or chronic (principal); E10.65 Type 1 diabetes mellitus with hyperglycemia; I10 Essential (primary) hypertension; Z79.899 Other long term (current) drug therapy; Z72.0 Tobacco use
CPT/HCPCS: 36415; 74176; 80053; 81001; 81025; 82009; 82947; 83605; 83735; 84100; 85025; 93005; 96374; 96375; 99284; A9270; J1885; J2405; J7030; J1815-GY

== ENCOUNTER 2022-01-16 15:38 | Inpatient (IN) | payer MEDICAID ==
[2022-01-16] MEDS ORDERED: Sodium Chloride 0.9% 1,000 ML IV ONE (16:12)
[2022-01-16] MEDS ORDERED: Insulin Regular, Human 100 Units/ML 10 ML Vial IVPUSH ONE ×2 (16:15→17:41)
[2022-01-16 16:56] LABS: BLOOD UREA NITROGEN,BUN 24 mg/dL (7.0-18.0); CARBON DIOXIDE,CO2 17.8 mmol/L (21.0-32.0); CHLORIDE,CL 89 mmol/L (98-107); POTASSIUM,K 4.1 mmol/L (3.5-5.1); SODIUM,NA 125 mmol/L (136-145)
[2022-01-16 16:57] LABS: ESTIMATED GFR 47 mL/min (>60)
[2022-01-16 16:58] LABS: GLUCOSE RANDOM 706 mg/dL (74-106)
[2022-01-16] MEDS ORDERED: Lactated Ringers 1,000 ML IV ONE (17:43)
[2022-01-16] MEDS ORDERED: Albuterol/Ipratropium 3.0-0.5 MG/3 ML Neb Soln NEB PRN (19:05)
[2022-01-16] MEDS ORDERED: Ondansetron 4 MG/2 ML SDV IVPUSH PRN (19:05)
[2022-01-16] MEDS ORDERED: Insulin Regular in 0.9 % NACL 100 ML IV SCH (19:45)
[2022-01-16 19:58] LABS: CARBON DIOXIDE,CO2 20.3 mmol/L (21.0-32.0); POTASSIUM,K 3.4 mmol/L (3.5-5.1)
[2022-01-16] MEDS: Lactated Ringers 1,000 ML IV SCH (20:14)
[2022-01-16] MEDS: Heparin Sodium 5,000 Units/ML Vial SUBCUT SCH (20:17)
[2022-01-16] MEDS: Pantoprazole 40 MG in Sodium Chloride 0.9% 10 ML IVPUSH SCH (20:19)
[2022-01-16] MEDS: Acetaminophen 325 MG Tab PO PRN (21:25)
[2022-01-16] MEDS ORDERED: Phosphorus #1 250 MG Tab PO ONE (22:04)
[2022-01-16] MEDS ORDERED: Potassium Chloride 20 MEQ Tab.ER PO ONE (22:05)
[2022-01-17 00:53] LABS: CARBON DIOXIDE,CO2 23.1 mmol/L (21.0-32.0); POTASSIUM,K 3.6 mmol/L (3.5-5.1)
[2022-01-17] MEDS ORDERED: 50% Dextrose in Water 50 ML Syringe IVPUSH PRN ×2 (01:16→19:13)
[2022-01-17] MEDS ORDERED: Glucagon,Human Recombinant 1 MG Vial IM PRN ×2 (01:16→19:13)
[2022-01-17] MEDS ORDERED: Insulin Glargine,Hum.Rec.Anlog 100 UNIT/ML 3 ML Pen SUBCUT ONE ×2 (01:17→21:00)
[2022-01-17] MEDS ORDERED: LORazepam 2 MG/ML SDV IVPUSH PRN (01:22)
[2022-01-17] MEDS: Lactated Ringers 1,000 ML IV SCH (01:33)
[2022-01-17] MEDS: Acetaminophen 325 MG Tab PO PRN (01:36)
[2022-01-17 05:09] LABS: POTASSIUM,K 3.8 mmol/L (3.5-5.1)
[2022-01-17] MEDS: Heparin Sodium 5,000 Units/ML Vial SUBCUT SCH ×3 (05:14→21:12)
[2022-01-17] MEDS ORDERED: Insulin Aspart 100 Units/ML 3 ML Pen SUBCUT SCH ×2 (07:30→11:30)
[2022-01-17] MEDS: Pantoprazole 40 MG in Sodium Chloride 0.9% 10 ML IVPUSH SCH (08:09)
[2022-01-17] MEDS ORDERED: Magnesium Sulfate/Water 2 GM in Premix Bag 1 BAG IV ONE (08:25)
[2022-01-17] MEDS: Lisinopril 10 MG Tab PO SCH (08:57)
[2022-01-17] MEDS: amLODIPine 5 MG Tab PO SCH (08:57)
[2022-01-17 09:00] LABS: CARBON DIOXIDE,CO2 22.4 mmol/L (21.0-32.0); POTASSIUM,K 4.1 mmol/L (3.5-5.1)
[2022-01-17] MEDS ORDERED: Insulin Aspart 100 Units/ML 3 ML Pen SUBCUT ONE ×2 (11:11→12:14)
[2022-01-17] MEDS ORDERED: Lactated Ringers 1,000 ML IV ONE ×2 (11:14→17:05)
[2022-01-17] MEDS: Insulin Glargine,Hum.Rec.Anlog 100 UNIT/ML 3 ML Pen SUBCUT SCH (11:34)
[2022-01-17] MEDS: Insulin Aspart 100 Units/ML 3 ML Pen SUBCUT SCH ×2 (17:50→21:16)
[2022-01-17 20:53] LABS: HEMOGLOBIN A1C >14.0 %
[2022-01-18] MEDS ORDERED: Lactated Ringers 1,000 ML IV SCH (00:30)
[2022-01-18] MEDS: Heparin Sodium 5,000 Units/ML Vial SUBCUT SCH ×2 (03:19→12:19)
[2022-01-18] MEDS: Insulin Aspart 100 Units/ML 3 ML Pen SUBCUT SCH ×4 (06:32→12:17)
[2022-01-18 06:41] LABS: CARBON DIOXIDE,CO2 26.5 mmol/L (21.0-32.0); POTASSIUM,K 3.8 mmol/L (3.5-5.1)
[2022-01-18] MEDS: amLODIPine 5 MG Tab PO SCH (10:09)
[2022-01-18] MEDS: Lisinopril 10 MG Tab PO SCH (10:10)
[2022-01-18] MEDS: Pantoprazole 40 MG in Sodium Chloride 0.9% 10 ML IVPUSH SCH (10:10)
[2022-01-18] MEDS: Insulin Glargine,Hum.Rec.Anlog 100 UNIT/ML 3 ML Pen SUBCUT SCH (10:16)
[2022-01-18] MEDS ORDERED: Insulin Glargine,Hum.Rec.Anlog 100 UNIT/ML 3 ML Pen SUBCUT ONE (21:00)
== END 2022-01-18 14:45 | disposition home or self-care (01) | DRG 638 ==
LOC: MW.ED 15:38 → MW.ICU 17:48 → MW.MS 01-17 15:20
PROVIDERS: ADMIT Student in an Organized Health Care Education/Training Program; ATTEND Student in an Organized Health Care Education/Training Program
DX: E10.10 Type 1 diabetes mellitus with ketoacidosis without coma (principal); N17.9 Acute kidney failure, unspecified; R79.89 Other specified abnormal findings of blood chemistry; I10 Essential (primary) hypertension; K21.9 Gastro-esophageal reflux disease without esophagitis; Z20.822 Contact with and (suspected) exposure to COVID-19; Z79.899 Other long term (current) drug therapy
CPT/HCPCS: 36415; 80048; 80053; 80305-QW; 81001; 82009; 82803; 82947; 83036; 83735; 83930; 84100; 84703; 85025; 96360; 96361; 99285-25; A9270-GY; C9113; J1644; J1815; J1815-GY; J3475; J3490; J7030; J7120; U0002

== ENCOUNTER 2022-07-06 10:02 | Inpatient (IN) | payer MEDICAID ==
[2022-07-06] MEDS ORDERED: Sodium Chloride 0.9% 2.5 ML Syringe FLUSH PRN (10:06)
[2022-07-06] MEDS ORDERED: Sodium Chloride 0.9% 10 ML Syringe FLUSH PRN (10:06)
[2022-07-06] MEDS ORDERED: Sodium Chloride 0.9% 1,000 ML IV ONE ×2 (10:07→10:08)
[2022-07-06 11:00] LABS: CORONAVIRUS COVID-19 NAA NEGATIVE (NEGATIVE); INFLUENZA A NAA NEGATIVE (NEGATIVE); INFLUENZA B NAA NEGATIVE (NEGATIVE)
[2022-07-06 11:20] LABS: CARBON DIOXIDE,CO2 17.5 mmol/L (21.0-32.0); POTASSIUM,K 5.6 mmol/L (3.5-5.1)
[2022-07-06] MEDS ORDERED: Sodium Chloride 0.9% 1,000 ML IV STA (11:48)
[2022-07-06 15:01] LABS: CARBON DIOXIDE,CO2 20.5 mmol/L (21.0-32.0); POTASSIUM,K 3.6 mmol/L (3.5-5.1)
[2022-07-06] MEDS ORDERED: Insulin Detemir 100 Units/ML 3 ML Pen SUBCUT ONE (15:52)
[2022-07-06] MEDS ORDERED: Glucagon,Human Recombinant 1 MG Vial IM PRN ×2 (15:52→18:35)
[2022-07-06] MEDS ORDERED: 50% Dextrose in Water 50 ML Syringe IVPUSH PRN ×2 (15:52→18:35)
[2022-07-06] MEDS ORDERED: Insulin Detemir 100 Units/ML 3 ML Pen SUBCUT STA (16:11)
[2022-07-06] MEDS ORDERED: Dextrose 5%-Lactated Ringers 1,000 ML IV SCH (16:15)
[2022-07-06] MEDS ORDERED: Lactated Ringers 1,000 ML IV SCH (16:15)
[2022-07-06 18:11] LABS: CARBON DIOXIDE,CO2 21.1 mmol/L (21.0-32.0); POTASSIUM,K 3.5 mmol/L (3.5-5.1)
[2022-07-06] MEDS ORDERED: Potassium Chloride 20 MEQ in Premix Bag 2 BAG IV ONE (18:45)
[2022-07-06] MEDS ORDERED: Magnesium Sulfate/Water 2 GM in Premix Bag 1 BAG IV ONE (18:45)
[2022-07-06] MEDS ORDERED: Acetaminophen 325 MG Tab PO PRN (18:53)
[2022-07-06] MEDS ORDERED: Ondansetron 4 MG/2 ML SDV IVPUSH PRN (18:53)
[2022-07-06] MEDS ORDERED: Albuterol/Ipratropium 3.0-0.5 MG/3 ML Neb Soln NEB PRN (18:55)
[2022-07-06] MEDS ORDERED: Polyethylene Glycol 3350 Powder 17 GM Packet PO PRN (18:55)
[2022-07-06] MEDS: Insulin Aspart 100 Units/ML 3 ML Pen SUBCUT SCH (20:17)
[2022-07-06] MEDS: Potassium Chloride 20 MEQ in Premix Bag 1 BAG IV SCH (22:04)
[2022-07-07] MEDS: Potassium Chloride 20 MEQ in Premix Bag 1 BAG IV SCH (00:27)
[2022-07-07] MEDS ORDERED: Insulin Aspart 100 Units/ML 3 ML Pen SUBCUT STA (06:48)
[2022-07-07 08:15] LABS: CARBON DIOXIDE,CO2 19.2 mmol/L (21.0-32.0); POTASSIUM,K 4.3 mmol/L (3.5-5.1)
[2022-07-07] MEDS: Insulin Aspart 100 Units/ML 3 ML Pen SUBCUT SCH ×5 (08:21→17:29)
[2022-07-07] MEDS ORDERED: Labetalol 100 MG Tab PO SCH (09:30)
[2022-07-07] MEDS: Insulin Detemir 100 Units/ML 3 ML Pen SUBCUT SCH (11:00)
[2022-07-07 11:19] LABS: HEMOGLOBIN A1C >14.0 %
[2022-07-07] MEDS: amLODIPine 5 MG Tab PO SCH (17:28)
[2022-07-07] MEDS: Lisinopril 10 MG Tab PO SCH (17:29)
[2022-07-08] MEDS: Insulin Aspart 100 Units/ML 3 ML Pen SUBCUT SCH ×2 (06:57→07:36)
[2022-07-08] MEDS ORDERED: Insulin Aspart 100 Units/ML 3 ML Pen SUBCUT STA (07:25)
[2022-07-08 07:57] LABS: CARBON DIOXIDE,CO2 22.4 mmol/L (21.0-32.0); POTASSIUM,K 4.3 mmol/L (3.5-5.1)
[2022-07-08] MEDS: Lisinopril 10 MG Tab PO SCH (08:20)
[2022-07-08] MEDS: amLODIPine 5 MG Tab PO SCH (08:20)
[2022-07-08] MEDS: Insulin Detemir 100 Units/ML 3 ML Pen SUBCUT SCH (08:23)
== END 2022-07-08 08:45 | disposition home or self-care (01) | DRG 638 ==
LOC: MW.ED 10:02 → MW.MS 15:57
PROVIDERS: ADMIT Student in an Organized Health Care Education/Training Program; ATTEND Student in an Organized Health Care Education/Training Program
DX: E10.65 Type 1 diabetes mellitus with hyperglycemia (principal); K86.1 Other chronic pancreatitis; I10 Essential (primary) hypertension; K21.9 Gastro-esophageal reflux disease without esophagitis; Z20.822 Contact with and (suspected) exposure to COVID-19; F17.210 Nicotine dependence, cigarettes, uncomplicated; Z91.09 Other allergy status, other than to drugs and biological substances; Z79.899 Other long term (current) drug therapy
CPT/HCPCS: 0240U; 36415; 80048; 80053; 81001; 82009; 82803; 82947; 83036; 83735; 84100; 84703; 85025; 93005; 96360; 96361; 99285-25; A9270-GY; J1815; J1815-GY; J3475; J3480; J3490; J7030; J7121

== ENCOUNTER 2023-03-29 09:02 | Emergency (ER) | payer MEDICAID | END 2023-03-29 10:32 | disposition home or self-care (01) | LOC: MW.ED 09:02 | DX: Z76.0 Encounter for issue of repeat prescription (principal); E10.9 Type 1 diabetes mellitus without complications; I10 Essential (primary) hypertension; K21.9 Gastro-esophageal reflux disease without esophagitis; Z79.899 Other long term (current) drug therapy; Z79.4 Long term (current) use of insulin | CPT/HCPCS: 82947; 99282; 99283 ==

== ENCOUNTER 2023-06-26 10:30 | Emergency (ER) | payer MEDICAID ==
[2023-06-26] MEDS ORDERED: Sodium Chloride 0.9% 10 ML Syringe FLUSH PRN (11:30)
[2023-06-26] MEDS ORDERED: Sodium Chloride 0.9% 2.5 ML Syringe FLUSH PRN (11:30)
[2023-06-26 13:01] LABS: BASOPHILS ABSOLUTE AUTO 0.04 K/uL (0.00-0.20); BASOPHILS PERCENT AUTO 0.7 % (0.0-1.0); EOSINOPHILS ABSOLUTE AUTO 0.12 K/uL (0.00-0.45); HEMATOCRIT 34.2 % (37.0-47.0); HEMOGLOBIN 11.7 g/dL (12.0-16.0); IMMATURE GRAN ABSOLUTE AUTO 0.01 K/uL (0.00-0.05); IMMATURE GRAN PERCENT AUTO 0.2 % (0.0-0.4); LYMPHOCYTES ABSOLUTE AUTO 1.84 K/uL (1.00-4.80); LYMPHOCYTES PERCENT AUTO 30.1 % (24.0-44.0); MEAN CORPUSCULAR HEMOGLOBIN 29.5 pg (28.0-32.0); MEAN CORPUSCULAR HGB CONC 34.2 g/dL (32.0-36.0); MEAN CORPUSCULAR VOLUME 86.4 fL (83.0-99.0); MEAN PLATELET VOLUME 12.6 fL (9.4-12.3); MONOCYTES ABSOLUTE AUTO 0.41 K/uL (0.00-0.80); MONOCYTES PERCENT AUTO 6.7 % (0.0-8.0); NEUTROPHILS PERCENT AUTO 60.3 % (41.0-71.0); PLATELET COUNT,PLT 210 K/uL (150-400); RED BLOOD CELL COUNT 3.96 M/uL (4.10-5.30); WHITE BLOOD CELL COUNT,WBC 6.12 K/uL (3.9-11.3)
[2023-06-26 13:57] LABS: A/G RATIO 0.9 (0.9-1.6); ALBUMIN 3.1 g/dL (3.4-5.0); BILIRUBIN TOTAL 0.2 mg/dL (0.2-1.0); CALCIUM 8.6 mg/dL (8.5-10.1); CREATININE 1.1 mg/dL (0.6-1.0); EST CRCL DRUG DOSING (CG) 68.75 mL/min; POTASSIUM,K 4.4 mmol/L (3.5-5.1); PROTEIN TOTAL,TP 6.6 g/dL (6.4-8.2)
== END 2023-06-26 12:45 | disposition left against medical advice (07) ==
LOC: MW.ED 10:30
DX: E11.9 Type 2 diabetes mellitus without complications (principal); R60.0 Localized edema; Z53.29 Procedure and treatment not carried out because of patient's decision for other reasons; K21.9 Gastro-esophageal reflux disease without esophagitis; Z79.899 Other long term (current) drug therapy; Z79.4 Long term (current) use of insulin; Z91.018 Allergy to other foods
CPT/HCPCS: 36415; 80053; 83880; 85025; 93970; 93970-26; 99283; 99284

== ENCOUNTER 2023-10-28 15:40 | Emergency (ER) | payer MEDICAID ==
[2023-10-28] MEDS: Sodium Chloride 0.9% 1,000 ML IV STA ×3 (15:51→18:00)
[2023-10-28] MEDS: Sodium Chloride 0.9% 2.5 ML Syringe FLUSH PRN (15:52)
[2023-10-28] MEDS: Sodium Chloride 0.9% 10 ML Syringe FLUSH PRN (15:52)
[2023-10-28 16:14] LABS: BASOPHILS ABSOLUTE AUTO 0.09 K/uL (0.00-0.20); BASOPHILS PERCENT AUTO 1.5 % (0.0-1.0); EOSINOPHILS ABSOLUTE AUTO 0.11 K/uL (0.00-0.45); EOSINOPHILS PERCENT AUTO 1.9 % (0.0-6.0); HEMATOCRIT 35.6 % (37.0-47.0); HEMOGLOBIN 12.2 g/dL (12.0-16.0); IMMATURE GRAN ABSOLUTE AUTO 0.03 K/uL (0.00-0.05); IMMATURE GRAN PERCENT AUTO 0.5 % (0.0-0.4); LYMPHOCYTES ABSOLUTE AUTO 1.31 K/uL (1.00-4.80); LYMPHOCYTES PERCENT AUTO 22.3 % (24.0-44.0); MEAN CORPUSCULAR HEMOGLOBIN 27.2 pg (28.0-32.0); MEAN CORPUSCULAR HGB CONC 34.3 g/dL (32.0-36.0); MEAN CORPUSCULAR VOLUME 79.5 fL (83.0-99.0); MEAN PLATELET VOLUME 12.7 fL (9.4-12.3); MONOCYTES ABSOLUTE AUTO 0.48 K/uL (0.00-0.80); MONOCYTES PERCENT AUTO 8.2 % (0.0-8.0); NEUTROPHILS ABSOLUTE AUTO 3.86 K/uL (1.80-7.70); NEUTROPHILS PERCENT AUTO 65.6 % (41.0-71.0); PLATELET COUNT,PLT 231 K/uL (150-400); RED BLOOD CELL COUNT 4.48 M/uL (4.10-5.30); WHITE BLOOD CELL COUNT,WBC 5.88 K/uL (3.9-11.3)
[2023-10-28 16:27] LABS: APPEARANCE,URINE CLEAR; BILIRUBIN,URINE NEGATIVE (NEGATIVE); COLOR,URINE STRAW; GLUCOSE,URINE >=1000 mg/dL (NEGATIVE); KETONES,URINE 40 mg/dL (NEGATIVE); LEUKOCYTE ESTERASE,URINE NEGATIVE (NEGATIVE); NITRITE,URINE POSITIVE (NEGATIVE); OCCULT BLOOD,URINE MODERATE (NEGATIVE); PROTEIN,URINE NEGATIVE (NEGATIVE); UROBILINOGEN,URINE 0.2 EU/dL (<2.0)
[2023-10-28 16:34] LABS: AMPHETAMINES SCREEN, URINE PRESUMPTIVE POSITIVE (CUTOFF=500); BARBITURATE SCREEN,URINE NEGATIVE (CUTOFF=200); BENZODIAZEPINES SCREEN,URINE NEGATIVE (CUTOFF=150); BUPRENORPHINE SCREEN,URINE NEGATIVE (CUTOFF=10); METHADONE SCREEN, URINE NEGATIVE (CUTOFF=200); METHAMPHETAMINES SCREEN, URINE PRESUMPTIVE POSITIVE (CUTOFF=500); OXYCODONE SCREEN,URINE NEGATIVE (CUT0FF=100); PCP SCREEN,URINE NEGATIVE (CUTOFF=25); THC SCREEN,URINE 20 NG/ML NEGATIVE (CUTOFF=50)
[2023-10-28 16:35] LABS: BACTERIA,URINE 2+ (NEGATIVE); EPITHELIAL CELLS,URINE RARE (NONE-FEW); WBC,URINE 0-1 (0-5/HPF)
[2023-10-28 16:38] LABS: A/G RATIO 0.8 (0.9-1.6); ALBUMIN 3.2 g/dL (3.4-5.0); BILIRUBIN TOTAL 0.3 mg/dL (0.2-1.0); CALCIUM 8.7 mg/dL (8.5-10.1); CARBON DIOXIDE,CO2 19.7 mmol/L (21.0-32.0); CREATININE 1.2 mg/dL (0.6-1.0); EST CRCL DRUG DOSING (CG) 62.62 mL/min; POTASSIUM,K 5.1 mmol/L (3.5-5.1)
[2023-10-28 16:51] LABS: BASE EXCESS VENOUS -3.4 (-2.0-3.0); BICARBONATE,VENOUS 23 mEQ/mL (22-28); PCO2 VENOUS 46 mmHG (41-51); PH,VENOUS 7.31 (7.31-7.41)
[2023-10-28 16:52] LABS: PO2 VENOUS < 30 mmHG (80-100)
[2023-10-28] MEDS: Morphine 2 MG/ML SYRINGE IVPUSH STA (17:00)
[2023-10-28] MEDS: Ondansetron 4 MG/2 ML SDV IVPUSH STA (17:01)
[2023-10-28 17:14] LABS: INR 0.93 (0.86-1.11)
[2023-10-28] MEDS: Insulin Regular in 0.9 % NACL 100 ML IV STA (17:41)
[2023-10-28 17:43] LABS: ETHANOL BLOOD MEDICAL <3 mg/dL; MAGNESIUM 2.3 mg/dL (1.8-2.4); PHOSPHORUS 4.1 mg/dL (2.6-4.7)
[2023-10-28] MEDS: Morphine 4 MG/ML Syringe IVPUSH STA (18:00)
[2023-10-28] MEDS: cefTRIAXone 1 GM in Sodium Chloride 0.9% 50 ML IV STA (18:27)
[2023-10-28] MEDS: Lisinopril 10 MG Tab PO STA (18:46)
[2023-10-28] MEDS: amLODIPine 5 MG Tab PO ONE (18:46)
[2023-10-28] MEDS: Iopamidol 755 Mg/ML 100 ML Bottle IVPUSH ONE (19:22)
[2023-10-28 21:22] LABS: CALCIUM 8.6 mg/dL (8.5-10.1); CARBON DIOXIDE,CO2 22.3 mmol/L (21.0-32.0); EST CRCL DRUG DOSING (CG) 75.14 mL/min; POTASSIUM,K 3.9 mmol/L (3.5-5.1)
== END 2023-10-28 23:29 | disposition home or self-care (01) ==
LOC: MW.ED 15:40
DX: N30.00 Acute cystitis without hematuria (principal); F15.10 Other stimulant abuse, uncomplicated; E10.65 Type 1 diabetes mellitus with hyperglycemia; I10 Essential (primary) hypertension; Z75.8 Other problems related to medical facilities and other health care; Z91.018 Allergy to other foods; Z79.899 Other long term (current) drug therapy; Z86.19 Personal history of other infectious and parasitic diseases
CPT/HCPCS: 36415; 74177; 80048; 80053; 80305; 80307; 81001; 81003; 82009; 82803; 82947; 83690; 83735; 84100; 84484; 84703; 85025; 85610; 85730; 87086; 93005; 96361; 96365; 96375; 99285; A9270; J0696; J1815; J2270; J2405; J3490; J7030; Q9967